=== PATIENT | female | born 1955 | race African-American/Black ===

== ENCOUNTER → 2019-10-14 | Outpatient (CLI) | payer MEDICARE, MEDICAID ==
[2019-10-14 16:32] LABS: ARTERIAL BLOOD BASE EXCESS 0.3 mmol/L; ARTERIAL BLOOD H2CO3 1.32 mmol/L (1.05-1.35); ARTERIAL BLOOD HCO3 25.7 mmol/L (20-24); ARTERIAL BLOOD O2 SATURATION 80.6 % (94-98); ARTERIAL BLOOD PCO2 43.9 mmHg (35-45); ARTERIAL BLOOD PH 7.39 (7.35-7.45); ARTERIAL BLOOD PO2 45.4 mmHg (80-100)
[2019-10-14 16:35] LABS: ARTERIAL BLOOD FIO2 ROOM AIR
== END ==
LOC: OD 15:31
PROVIDERS: ATTEND Internal Medicine Pulmonary Disease
DX: J43.2 Centrilobular emphysema (principal); E66.2 Morbid (severe) obesity with alveolar hypoventilation
CPT/HCPCS: 82803

== ENCOUNTER → 2019-11-03 | Outpatient (CLI) | payer MEDICARE, MEDICAID ==
[2019-11-03 11:22] LABS: ARTERIAL BLOOD BASE EXCESS -0.1 mmol/L; ARTERIAL BLOOD H2CO3 1.23 mmol/L (1.05-1.35); ARTERIAL BLOOD HCO3 24.7 mmol/L (20-24); ARTERIAL BLOOD O2 SATURATION 96.8 % (94-98); ARTERIAL BLOOD PO2 89.3 mmHg (80-100)
[2019-11-03 11:36] LABS: ARTERIAL BLOOD FIO2 3L
== END ==
LOC: OD 10:29
PROVIDERS: ATTEND Internal Medicine Pulmonary Disease
DX: J96.11 Chronic respiratory failure with hypoxia (principal)
CPT/HCPCS: 82803

== ENCOUNTER 2020-02-23 14:18 | Inpatient (IN) | payer MEDICARE, MEDICAID ==
--- NOTE | 2020-02-23 14:53 | ER Document Report ---
ED General - General Stated Complaint: SHORTNESS OF BREATH Time Seen by Provider: 02/23/20 14:53 Primary Care Provider: ANGE BERGER DO [Primary Care Provider] - Follow up as needed TRAVEL OUTSIDE OF THE [place] IN LAST 30 DAYS: No - HPI Patient complains to provider of: SOB Notes: Super morbidly obese 65-year-old female presents from wound clinic with increasing shortness of breath. Patient chronically wears oxygen. Initially they were concerned they were testing her pulse ox on her gloved hand was questionably hypoxic. Called EMS. EMS found patient to have oxygen reading of 95%. Patient is chronically hypoxic due to super morbid obesity. She denies any real change in her symptoms. She just does not like how she "feels". Patient states she has been feeling this for more than a year. Denies fever chills. Past Medical History - Social History Smoking Status: Unknown if Ever Smoked Family History: None Review of Systems - Review of Systems Notes: REVIEW OF SYSTEMS: CONSTITUTIONAL: -fevers, -chills EENT: -eye pain, -difficulty swallowing, -nasal congestion CARDIOVASCULAR: -chest pain, -syncope. RESPIRATORY: -cough, shortness of breath GASTROINTESTINAL: -abdominal pain, -nausea, -vomiting, -diarrhea GENITOURINARY: -dysuria, -hematuria MUSCULOSKELETAL: -back pain, -neck pain SKIN: -rash or skin lesions. HEMATOLOGIC: -easy bruising or bleeding. LYMPHATIC: -swollen, enlarged glands. NEUROLOGICAL: -altered mental status or loss of consciousness, -headache, - neurologic symptoms PSYCHIATRIC: -anxiety, -depression. ALL OTHER SYSTEMS REVIEWED AND NEGATIVE. Physical Exam - Vital signs Vitals: Temp 98.6 F 02/23/20 14:22 - Notes Notes: PHYSICAL EXAMINATION: GENERAL: Well-appearing, well-nourished and in no acute distress, super morbidly obese HEAD: Atraumatic, normocephalic. EYES: Pupils equal round, sclera anicteric, conjunctiva are normal. ENT: Surgical mask in place. NECK: Normal range of motion, LUNGS: No respiratory Distress, normal chest rise EXTREMITIES: Normal range of motion, No cyanosis. NEUROLOGICAL: Cranial nerves grossly intact. Normal speech, PSYCH: Normal mood, normal affect. SKIN: Warm, Dry, Course - Re-evaluation Re-evalutation: 02/23/20 15:27 Super morbidly obese female presents with continued shortness of breath for greater than a year. Patient having difficulty caring for herself. But does not want to go to a senior living. 02/23/20 17:38 Patient found to be hypoxic with a very low partial pressure of oxygen on her arterial blood gas. Profound elevation in proBNP. Chest x-ray also has pulmonary edema. Patient be given IV Lasix in the emergency department again diuresis. Patient is on 3 L nasal cannula. Patient require admission the hospital for further d iuresis and close monitoring. - Vital Signs Vital signs: Temp Pulse Resp BP Pulse Ox 98.6 F 20 142/74 H 92 02/23/20 14:22 02/23/20 16:00 02/23/20 15:00 02/23/20 16:00 - Laboratory Result Diagrams: 02/23/20 15:20 02/23/20 15:20 Laboratory results interpreted by me: 02/23/20 02/23/20 02/23/20 15:20 15:20 15:20 RBC 5.36 H RDW 17.6 H Plt Count 139 L Carbonic Acid ABG pCO2 ABG pO2 ABG HCO3 ABG Total CO2 ABG O2 Saturation Glucose 126 H NT-Pro-B Natriuret Pep 2300 H 02/23/20 16:00 RBC RDW Plt Count Carbonic Acid 1.39 H ABG pCO2 46.2 H ABG pO2 65.8 L ABG HCO3 26.5 H ABG Total CO2 28.0 H ABG O2 Saturation 92.5 L Glucose NT-Pro-B Natriuret Pep Discharge - Discharge Clinical Impression: Hypoxia CHF (congestive heart failure) Qualifiers: Heart failure type: unspecified Heart failure chronicity: acute on chronic Qualified Code(s): I50.9 - Heart failure, unspecified Condition: Stable Disposition: ADMITTED INPATIENT Admitting Provider: Poli (Hospitalist) Unit Admitted: Telemetry Referrals: ANGE BERGRE DO [Primary Care Provider] - Follow up as needed
[2020-02-23] MEDS ORDERED: IPRATROPIUM/ALBUTEROL 0.5-2.5 MG/3 ML AMPUL NEB ONE (14:54)
--- NOTE | 2020-02-23 15:27 | RADIOLOGY REPORT (SQ) ---
EXAM DESCRIPTION: CHEST SINGLE VIEW IMAGES COMPLETED DATE/TIME: 02/23/2020 3:10 pm REASON FOR STUDY: bed 5 difficulty breathing COMPARISON: None. EXAM PARAMETERS: NUMBER OF VIEWS: One view. TECHNIQUE: Single frontal radiographic view of the chest acquired. RADIATION DOSE: NA LIMITATIONS: None. FINDINGS: LUNGS AND PLEURA: Pulmonary vascular congestion. Cannot exclude mild pulmonary edema. MEDIASTINUM AND HILAR STRUCTURES: No masses. Contour normal. HEART AND VASCULAR STRUCTURES: Cardiomegaly. BONES: No acute findings. HARDWARE: None in the chest. OTHER: No other significant finding. IMPRESSION: Cardiomegaly with pulmonary vascular congestion. Cannot exclude mild pulmonary edema. TECHNICAL DOCUMENTATION: JOB ID: [id number] 2010 [employer]- All Rights Reserved Reading location - IP/workstation name: [email or web address]
[2020-02-23 15:45] LABS: ABSOLUTE BASOPHILS # (AUTO) 0.1 10^3/uL (0.0-0.2); ABSOLUTE EOSINOPHILS # (AUTO) 0.3 10^3/uL (0.0-0.6); TOTAL CELLS COUNTED % (AUTO) 100 %
[2020-02-23 15:53] LABS: ABSOLUTE LYMPHOCYTES (AUTO) 1.2 10^3/uL (0.5-4.7); ABSOLUTE MONOCYTES (AUTO) 0.5 10^3/uL (0.1-1.4); ABSOLUTE NEUT (AUTO) 4.8 10^3/uL (1.7-8.2); BASOPHILS % (AUTO) 1.2 % (0-2); EOSINOPHILS % (AUTO) 4.2 % (0-6); HEMOGLOBIN 14.8 g/dL (12.0-15.5); LYMPHOCYTES % (AUTO) 17.1 % (13-45); MEAN CORPUSCULAR HEMOGLOBIN 27.7 pg (27.0-33.4); MEAN CORPUSCULAR VOLUME 84 fl (80-97); MONOCYTES % (AUTO) 7.4 % (3-13); PLATELET COUNT 139 10^3/uL (150-450); RED BLOOD COUNT 5.36 10^6/uL (3.72-5.28); RED CELL DISTRIBUTION WIDTH 17.6 % (11.5-14.0); SEGMENTED NEUTROPHILS % (AUTO) 70.1 % (42-78); WHITE BLOOD COUNT 6.8 10^3/uL (4.0-10.5)
[2020-02-23 16:17] LABS: ARTERIAL BLOOD BASE EXCESS 0.8 mmol/L; ARTERIAL BLOOD H2CO3 1.39 mmol/L (1.05-1.35); ARTERIAL BLOOD HCO3 26.5 mmol/L (20-24); ARTERIAL BLOOD O2 SATURATION 92.5 % (94-98); ARTERIAL BLOOD PCO2 46.2 mmHg (35-45); ARTERIAL BLOOD PH 7.38 (7.35-7.45); ARTERIAL BLOOD PO2 65.8 mmHg (80-100)
[2020-02-23 16:18] LABS: ARTERIAL BLOOD FIO2 2L
[2020-02-23 16:22] LABS: CREATINE KINASE MB 0.66 ng/mL (<4.55)
[2020-02-23 16:24] LABS: TROPONIN I < 0.012 ng/mL
[2020-02-23 16:54] LABS: BILIRUBIN,DIRECT 0.3 mg/dL (0.0-0.4); BILIRUBIN,TOTAL 0.9 mg/dL (0.2-1.3); NEONATAL BILIRUBIN RESULT 0.7 mg/dL (0.1-1.1)
[2020-02-23 17:06] LABS: ALBUMIN 3.7 g/dL (3.5-5.0); ALKALINE PHOSPHATASE 88 U/L (38-126); ANION GAP 8 (5-19); BLOOD UREA NITROGEN 17 mg/dL (7-20); CALCIUM 9.3 mg/dL (8.4-10.2); CARBON DIOXIDE 27 mmol/L (22-30); CHLORIDE 104 mmol/L (98-107); CREATINE KINASE 60 U/L (30-135); POTASSIUM 4.2 mmol/L (3.6-5.0); TOTAL PROTEIN 7.7 g/dL (6.3-8.2)
[2020-02-23 17:07] LABS: ASPARTATE AMINO TRANSFERASE 26 U/L (14-36); GLUCOSE 126 mg/dL (75-110)
[2020-02-23 17:26] LABS: NT PRO BNP 2300 pg/mL (<125)
[2020-02-23] MEDS ORDERED: FUROSEMIDE INJ/PF 100 MG/10 ML SDV IV ONE (17:34)
--- NOTE | 2020-02-23 18:09 | EKG REPORT ---
SEVERITY:- ABNORMAL ECG - SINUS RHYTHM LEFT ATRIAL ABNORMALITY LOW VOLTAGE WITH RIGHT AXIS DEVIATION BORDERLINE R WAVE PROGRESSION, ANTERIOR LEADS BORDERLINE T ABNORMALITIES, DIFFUSE LEADS : Confirmed by: Selwyn Trujillo MD 23-Feb-2020 18:07:59
[2020-02-23] MEDS ORDERED: METOPROLOL TARTRATE PF/INJ 5 MG/5 ML SDV IV PRN (18:21)
[2020-02-23] MEDS ORDERED: HYDRALAZINE HCL INJ/PF 20 MG/1 ML SDV IV PRN (18:21)
--- NOTE | 2020-02-23 18:21 | PDOC H&P ---
History of Present Illness Admission Date/PCP: ANGE BERGER DO History of Present Illness: BRICE HALE is a 65 year old female past medical history of ANGELIKA on CPAP, CAD, hypertension, dyslipidemia, super morbid obesity with bilateral lower extremity stasis and chronic wounds, oxygen dependent COPD 3 L/min 11/03, TIA, presenting to ED complaining of shortness of breath. Patient was going for routine wound care at the wound clinic where she was noted to short of breath, her oxygen was checked and noted to be hypoxic. Patient denies any fever, chills, nausea, vomiting, diarrhea, constipation or any urinary symptoms, denies being exposed to anybody with COVID-19 exposure, lives her grandkids and has not traveled recently. In ED was noted to have elevated BNP, chest x-ray showed cardiomegaly and pulmonary vascular congestion, and ABG showed mild CO2 retention and PO2 of 65.8. Hospitalist consulted for admission. Past Medical History Cardiac Medical History: Reports: Hypertension Endocrine Medical History: Reports: Diabetes Mellitus Type 2 Social History Smoking Status: Unknown if Ever Smoked Electronic Cigarette use?: No Family History Family History: None Parental Family History Reviewed: Yes Children Family History Reviewed: Yes Sibling(s) Family History Reviewed.: Yes Medication/Allergy Allergies/Adverse Reactions: No Known Allergies Allergy (Verified 02/23/20 18:26) Review of Systems Review of Systems: as per hpi Physical Exam Vital Signs: Temp Pulse Resp BP Pulse Ox 98.6 F 23 H 159/84 H 95 02/23/20 14:22 02/23/20 17:01 02/23/20 17:00 02/23/20 17:01 Intake & Output 02/22/20 02/23/20 02/24/20 06:59 06:59 06:59 Weight 160 kg General appearance: PRESENT: no acute distress, obese Head exam: PRESENT: atraumatic, normocephalic Neck exam: ABSENT: carotid bruit, JVD, lymphadenopathy, thyromegaly Respiratory exam: PRESENT: clear to auscultation paula, prolonged expiratory phas. ABSENT: rales, rhonchi, wheezes Cardiovascular exam: PRESENT: RRR. ABSENT: diastolic murmur, rubs, systolic mu rmur GI/Abdominal exam: PRESENT: normal bowel sounds, soft. ABSENT: distended, guarding, mass, organolmegaly, rebound, tenderness Extremities exam: PRESENT: full ROM, other - Severe bilateral lower extremity lymphedema and stasis dermatitis no cellulitis or active infection.. ABSENT: calf tenderness, clubbing, pedal edema Neurological exam: PRESENT: alert, awake, oriented to person, oriented to place, oriented to time, oriented to situation, CN II-XII grossly intact. ABSENT: motor sensory deficit Results Laboratory Results: 02/23/20 15:20 02/23/20 15:20 02/23/20 02/23/20 02/23/20 15: 15:20 16:00 WBC 6.8 RBC 5.36 H Hgb 14.8 Hct 45.0 MCV 84 MCH 27.7 MCHC 33.0 RDW 17.6 H Plt Count 139 L Seg Neutrophils % 70.1 Carbonic Acid 1.39 H HCO3/H2CO3 Ratio 19:1 ABG pH 7.38 ABG pCO2 46.2 H ABG pO2 65.8 L ABG HCO3 26.5 H ABG O2 Saturation 92.5 L ABG Base Excess 0.8 FiO2 2L Sodium 138.8 Potassium 4.2 Chloride 104 Carbon Dioxide 27 Anion Gap 8 BUN 17 Creatinine 0.58 Est GFR ( Amer) > 60 Glucose 126 H Calcium 9.3 Total Bilirubin 0.9 AST 26 Alkaline Phosphatase 88 Total Protein 7.7 Albumin 3.7 02/23/20 02/23/20 15:20 15:20 Creatine Kinase 60 CK-MB (CK-2) 0.66 Troponin I < 0.012 NT-Pro-B Natriuret Pep 2300 H Impressions: Chest X-Ray 02/23/20 14:22 IMPRESSION: Cardiomegaly with pulmonary vascular congestion. Cannot exclude mild pulmonary edema. Assessment and Plan - Diagnosis (1) Acute respiratory failure with hypoxia and hypercapnia Is this a current diagnosis for this admission?: Yes Plan: Mostly due to acute CHF exacerbation, complicated by underlying COPD and ANGELIKA. WBC WNL. Afebrile. Denies any fever or chills. Denies any loss of smell or taste. Denies COVID-19 exposure. Admit to telemetry, duo nebs, supplemental oxygen, IV diuretics, incentive spirometry, flutter valve, ICS, LABA, LABA, CPAP. (2) ANGELIKA (obstructive sleep apnea) Is this a current diagnosis for this admission?: Yes Plan: On CPAP. Nocturnal CPAP. Outpatient pulmonology follow-up. (3) Hypertension Is this a current diagnosis for this admission?: Yes Plan: Volume overloaded. SBP mildly elevated. Resume home meds. PRN IV hydralazine and metoprolol. (4) Morbid obesity with BMI of 60.0-69.9, adult Is this a current diagnosis for this admission?: Yes Plan: Super morbidly obese. Likely candidate for bariatric intervention. Denies any history of hypothyroidism. Will obtain TSH. Diet and lifestyle modification recommended. (5) COPD (chronic obstructive pulmonary disease) Qualifiers: COPD type: COPD with acute exacerbation Qualified Code(s): J44.1 - Chronic obstructive pulmonary disease with (acute) exacerbation Is this a current diagnosis for this admission?: Yes Plan: Mild expiratory wheezing and prolonged expiratory phase. Former smoker, history of COPD oxygen dependent, 3 L/min 11/03. LABA, LABA, ICS, DuoNeb, PRN BiPAP. Flutter valve and incentive spirometry. (6) Stasis dermatitis of both legs Is this a current diagnosis for this admission?: Yes Plan: Due to bilateral lower extremity severe lymphedema complicated by bilateral lower extremity stasis dermatitis with history of CHF. Elevate lower extremities. Compression stocking. Wound care. (7) CHF (congestive heart failure) Qualifiers: Heart failure type: systolic Heart failure chronicity: acute on chronic Qualified Code(s): I50.23 - Acute on chronic systolic (congestive) heart failure Is this a current diagnosis for this admission?: Yes Plan: Denies any anginal symptoms. EKG no acute changes. Troponin WNL. BNP 2700. Strict in and out, daily weights, IV diuretics, fluid restriction, cardiac diet.
[2020-02-23] MEDS ORDERED: ACETAMINOPHEN 325 MG TABLET PO PRN (18:22)
[2020-02-23] MEDS ORDERED: ONDANSETRON HCL INJ/PF 4 MG/2 ML SDV IV PRN (18:22)
[2020-02-23] MEDS ORDERED: MAGNESIUM HYDROXIDE SUSP 30 ML UDCUP PO PRN (18:22)
[2020-02-23] MEDS ORDERED: PROMETHAZINE HCL INJ 25 MG/1 ML VIAL IV PRN (18:22)
[2020-02-23] MEDS ORDERED: IPRATROPIUM/ALBUTEROL 0.5-2.5 MG/3 ML AMPUL NEB PRN (18:22)
[2020-02-23] MEDS ORDERED: DEXTROSE 50%-WATER 25 GM/50 ML DISP.SYRIN IV PRN ×2 (18:28)
[2020-02-23] MEDS ORDERED: DEXTROSE 40% GEL 15 GM TUBE PO PRN ×2 (18:28)
[2020-02-23] MEDS ORDERED: GLUCAGON,HUMAN RECOMB 1 MG INJ IM PRN (18:28)
[2020-02-23] MEDS: IPRATROPIUM/ALBUTEROL 0.5-2.5 MG/3 ML AMPUL NEB SCH (20:56)
[2020-02-23 21:02] LABS: APPEARANCE,URINE SLIGHTLY-CLOUDY; BILIRUBIN,URINE NEGATIVE (NEGATIVE); COLOR,URINE YELLOW; GLUCOSE, URINE NEGATIVE (NEGATIVE); KETONES,URINE NEGATIVE (NEGATIVE); LEUKOCYTE ESTERASE,URINE LARGE (NEGATIVE); NITRITE,URINE NEGATIVE (NEGATIVE); PROTEIN,URINE NEGATIVE (NEGATIVE); URINE SPECIFIC GRAVITY 1.006; UROBILINOGEN,URINE NEGATIVE mg/dL (<2.0)
[2020-02-23] MEDS: INSULIN LISPRO 100 UNIT/ML 3 ML VIAL SUBCUT SCH (22:22)
[2020-02-23] MEDS: METHYLPREDNISOLONE INJ 40 MG/1 ML SDV IV SCH (22:28)
[2020-02-23] MEDS: FUROSEMIDE INJ/PF 20 MG/2 ML SDV IV SCH (22:29)
[2020-02-23] MEDS: FAMOTIDINE 20 MG TABLET PO SCH (22:29)
[2020-02-24] MEDS: OXYCODONE-ACETAMINOPHEN 5-325 MG TABLET PO PRN (03:25)
[2020-02-24] MEDS: METHYLPREDNISOLONE INJ 40 MG/1 ML SDV IV SCH ×3 (05:26→21:37)
[2020-02-24 06:34] LABS: ARTERIAL BLOOD BASE EXCESS -0.5 mmol/L; ARTERIAL BLOOD H2CO3 1.64 mmol/L (1.05-1.35); ARTERIAL BLOOD HCO3 26.8 mmol/L (20-24); ARTERIAL BLOOD O2 SATURATION 92.5 % (94-98); ARTERIAL BLOOD PCO2 54.5 mmHg (35-45); ARTERIAL BLOOD PH 7.31 (7.35-7.45); ARTERIAL BLOOD PO2 70.5 mmHg (80-100); ARTERIAL BLOOD TOTAL CO2 28.5 mmol/L (21-25)
[2020-02-24] MEDS: IPRATROPIUM/ALBUTEROL 0.5-2.5 MG/3 ML AMPUL NEB SCH ×3 (07:54→20:07)
[2020-02-24] MEDS: INSULIN LISPRO 100 UNIT/ML 3 ML VIAL SUBCUT SCH ×4 (09:04→21:40)
[2020-02-24] MEDS: ENOXAPARIN SODIUM INJ 40 MG/0.4 ML DISP.SYRIN SUBCUT SCH (09:12)
[2020-02-24] MEDS: PRIMIDONE 50 MG TABLET PO SCH (09:27)
[2020-02-24] MEDS: FLUTICASONE/VILANTEROL 200-25 MCG/DOSE IH SCH (09:27)
[2020-02-24] MEDS: NAPROXEN 250 MG TABLET PO SCH ×2 (09:28→21:37)
[2020-02-24] MEDS: DOCUSATE SODIUM 100 MG CAPSULE PO SCH (09:28)
[2020-02-24] MEDS: CLOPIDOGREL BISULFATE 75 MG TABLET PO SCH (09:28)
[2020-02-24] MEDS: FAMOTIDINE 20 MG TABLET PO SCH ×2 (09:28→21:41)
[2020-02-24] MEDS: SERTRALINE HCL 50 MG TABLET PO SCH (09:28)
[2020-02-24] MEDS: LOSARTAN POTASSIUM 50 MG TABLET PO SCH (09:28)
[2020-02-24] MEDS: ISOSORBIDE MONONITRATE 30 MG TAB.ER.24H PO SCH (09:29)
[2020-02-24] MEDS: FUROSEMIDE INJ/PF 20 MG/2 ML SDV IV SCH ×2 (09:29→21:40)
[2020-02-24] MEDS: CARVEDILOL 3.125 MG TABLET PO SCH ×2 (09:29→21:38)
[2020-02-24] MEDS ORDERED: ONDANSETRON HCL INJ/PF 4 MG/2 ML SDV IV PRN (09:30)
[2020-02-24] MEDS ORDERED: PROMETHAZINE HCL INJ 25 MG/1 ML VIAL IV PRN (09:30)
[2020-02-24] MEDS: AMLODIPINE BESYLATE 10 MG TABLET PO SCH (09:36)
[2020-02-24] MEDS ORDERED: (PENDING PHARMACY ID) (Losartan Potassium [Losartan Potassium] 100 MG) PO SCH (10:00)
[2020-02-24] MEDS ORDERED: (PENDING PHARMACY ID) (Naproxen [Naproxen] 500 MG) PO SCH (10:00)
[2020-02-24] MEDS ORDERED: (PENDING PHARMACY ID) (Oxybutynin Chloride [Oxybutynin Chloride Er] 10 MG) PO SCH (10:00)
[2020-02-24] MEDS: OXYBUTYNIN CHLORIDE 5 MG TABLET PO SCH (10:57)
[2020-02-24] MEDS ORDERED: MAGNESIUM HYDROXIDE SUSP 30 ML UDCUP PO PRN (11:12)
[2020-02-24] MEDS ORDERED: (PENDING PHARMACY ID) (Paroxetine Hcl [Paxil] 30 MG) PO SCH (12:15)
[2020-02-24] MEDS: PAROXETINE HCL 20 MG TABLET PO SCH (13:21)
--- NOTE | 2020-02-24 19:16 | PDOC PROGRESS REPORT ---
Subjective Progress Note for:: 02/24/20 Subjective:: BRICE HALE is a 65 year old female past medical history of ANGELIKA on CPAP, CAD, hypertension, dyslipidemia, super morbid obesity with bilateral lower extremity stasis and chronic wounds, oxygen dependent COPD 3 L/min 11/03, TIA, presenting to ED complaining of shortness of breath. Patient was going for routine wound care at the wound clinic where she was noted to short of breath, her oxygen was checked and noted to be hypoxic. Patient denies any fever, chills, nausea, vomiting, diarrhea, constipation or any urinary symptoms, denies being exposed to anybody with COVID-19 exposure, lives her grandkids and has not traveled recently. In ED was noted to have elevated BNP, chest x-ray showed cardiomegaly and pulmonary vascular congestion, and ABG showed mild CO2 retention and PO2 of 65.8. Hospitalist consulted for admission. 02/24/2020. No acute events overnight. Reporting significant improvement of respiratory symptoms. However patient is still hypoxic based on ABG. Denies any fever, chills, nausea, vomiting, diarrhea, constipation or any urinary sy mptoms. Reason For Visit: ACUTE RESPIRATORY FAILURE WITH HYPOXIA,ACUTE CHF Physical Exam Vital Signs: Temp Pulse Resp BP Pulse Ox 97.4 F 62 20 142/69 H 91 L 02/24/20 15:55 02/24/20 15:55 02/24/20 15:55 02/24/20 15:55 02/24/20 15:59 Intake & Output 02/23/20 02/24/20 02/25/20 06:59 06:59 06:59 Intake Total 880 Output Total 3000 1700 Balance -3000 -820 Weight 160 kg General appearance: PRESENT: no acute distress, obese Head exam: PRESENT: atraumatic, normocephalic Respiratory exam: PRESENT: clear to auscultation paula. ABSENT: rales, rhonchi, wheezes Cardiovascular exam: PRESENT: RRR. ABSENT: diastolic murmur, rubs, systolic murmur GI/Abdominal exam: PRESENT: normal bowel sounds, soft. ABSENT: distended, guarding, mass, organolmegaly, rebound, tenderness Extremities exam: PRESENT: other - Severe bilateral lower extremity lymphedema and stasis dermatitis. No sign of active infection. Neurological exam: PRESENT: alert, awake, oriented to person, oriented to place, oriented to time, oriented to situation, CN II-XII grossly intact. ABSENT: motor sensory deficit Results Laboratory Results: 02/23/20 15:20 02/23/20 15:20 02/23/20 02/23/20 02/24/20 15:20 20:10 06:15 Carbonic Acid 1.64 H HCO3/H2CO3 Ratio 16:1 ABG pH 7.31 L ABG pCO2 54.5 H ABG pO2 70.5 L ABG HCO3 26.8 H ABG O2 Saturation 92.5 L ABG Base Excess -0.5 FiO2 34% TSH 4.20 Urine Color YELLOW Urine Appearance SLIGHTLY-CLOUDY Urine pH 6.0 Ur Specific [place] 1.006 Urine Protein NEGATIVE Urine Glucose (UA) NEGATIVE Urine Ketones NEGATIVE Urine Blood SMALL H Urine Nitrite NEGATIVE Ur Leukocyte Esterase LARGE H Urine WBC (Auto) 41 Urine RBC (Auto) 5 02/23/20 02/23/20 15:20 15:20 Creatine Kinase 60 CK-MB (CK-2) 0.66 Troponin I < 0.012 NT-Pro-B Natriuret Pep 2300 H Impressions: Chest X-Ray 02/23/20 14:22 IMPRESSION: Cardiomegaly with pulmonary vascular congestion. Cannot exclude mild pulmonary edema. Assessment and Plan - Diagnosis (1) Acute respiratory failure with hypoxia and hypercapnia Is this a current diagnosis for this admission?: Yes Plan: Mostly due to acute CHF exacerbation, complicated by underlying COPD and ANGELIKA. WBC WNL. Afebrile. Denies any fever or chills. Denies any loss of smell or taste. Denies COVID-19 exposure. Admit to telemetry, duo nebs, supplemental oxygen, IV diuretics, incentive spirometry, flutter valve, ICS, LABA, LABA, CPAP. (2) ANGELIKA (obstructive sleep apnea) Is this a current diagnosis for this admission?: Yes Plan: On CPAP. Nocturnal CPAP. Outpatient pulmonology follow-up. (3) Hypertension Is this a current diagnosis for this admission?: Yes Plan: Volume overloaded. SBP mildly elevated. Resume home meds. PRN IV hydralazine and metoprolol. (4) Morbid obesity with BMI of 60.0-69.9, adult Is this a current diagnosis for this admission?: Yes Plan: Super morbidly obese. Likely candidate for bariatric intervention. Denies any history of hypothyroidism. Will obtain TSH. Diet and lifestyle modification recommended. (5) COPD (chronic obstructive pulmonary disease) Qualifiers: COPD type: COPD with acute exacerbation Qualified Code(s): J44.1 - Chronic obstructive pulmonary disease with (acute) exacerbation Is this a current diagnosis for this admission?: Yes Plan: Mild expiratory wheezing and prolonged expiratory phase. Former smoker, history of COPD oxygen dependent, 3 L/min 11/03. LABA, LABA, ICS, DuoNeb, PRN BiPAP. Flutter valve and incentive spirometry. (6) Stasis dermatitis of both legs Is this a current diagnosis for this admission?: Yes Plan: Due to bilateral lower extremity severe lymphedema complicated by bilateral lower extremity stasis dermatitis with history of CHF. Elevate lower extremities. Compression stocking. Wound care. (7) CHF (congestive heart failure) Qualifiers: Heart failure type: systolic Heart failure chronicity: acute on chronic Qualified Code(s): I50.23 - Acute on chronic systolic (congestive) heart failure Is this a current diagnosis for this admission?: Yes Plan: Denies any anginal symptoms. EKG no acute changes. Troponin WNL. BNP 2700. Strict in and out, daily weights, IV diuretics, fluid restriction, cardiac diet.
[2020-02-24] MEDS: SIMVASTATIN 10 MG TABLET PO SCH (21:39)
[2020-02-25] MEDS: METHYLPREDNISOLONE INJ 40 MG/1 ML SDV IV SCH ×3 (05:29→23:56)
[2020-02-25 06:33] LABS: ARTERIAL BLOOD BASE EXCESS 1.1 mmol/L; ARTERIAL BLOOD H2CO3 1.47 mmol/L (1.05-1.35); ARTERIAL BLOOD HCO3 27.3 mmol/L (20-24); ARTERIAL BLOOD O2 SATURATION 94.2 % (94-98); ARTERIAL BLOOD PCO2 48.8 mmHg (35-45); ARTERIAL BLOOD PH 7.37 (7.35-7.45); ARTERIAL BLOOD PO2 73.6 mmHg (80-100); ARTERIAL BLOOD TOTAL CO2 28.8 mmol/L (21-25)
[2020-02-25 06:36] LABS: ARTERIAL BLOOD FIO2 32%
[2020-02-25] MEDS: INSULIN LISPRO 100 UNIT/ML 3 ML VIAL SUBCUT SCH ×3 (08:01→17:15)
[2020-02-25] MEDS: IPRATROPIUM/ALBUTEROL 0.5-2.5 MG/3 ML AMPUL NEB SCH ×3 (08:58→20:48)
[2020-02-25] MEDS: PAROXETINE HCL 20 MG TABLET PO SCH (09:25)
[2020-02-25] MEDS: FLUTICASONE/VILANTEROL 200-25 MCG/DOSE IH SCH (09:25)
[2020-02-25] MEDS: AMLODIPINE BESYLATE 10 MG TABLET PO SCH (09:25)
[2020-02-25] MEDS: CLOPIDOGREL BISULFATE 75 MG TABLET PO SCH (09:25)
[2020-02-25] MEDS: FUROSEMIDE INJ/PF 20 MG/2 ML SDV IV SCH (09:25)
[2020-02-25] MEDS: ISOSORBIDE MONONITRATE 30 MG TAB.ER.24H PO SCH (09:25)
[2020-02-25] MEDS: FAMOTIDINE 20 MG TABLET PO SCH ×2 (09:25→23:59)
[2020-02-25] MEDS: DOCUSATE SODIUM 100 MG CAPSULE PO SCH (09:25)
[2020-02-25] MEDS: SERTRALINE HCL 50 MG TABLET PO SCH (09:25)
[2020-02-25] MEDS: CARVEDILOL 3.125 MG TABLET PO SCH ×2 (09:26→23:59)
[2020-02-25] MEDS: LOSARTAN POTASSIUM 50 MG TABLET PO SCH (09:26)
[2020-02-25] MEDS: ENOXAPARIN SODIUM INJ 40 MG/0.4 ML DISP.SYRIN SUBCUT SCH (09:26)
[2020-02-25] MEDS: NAPROXEN 250 MG TABLET PO SCH ×2 (09:26→23:58)
[2020-02-25] MEDS: PRIMIDONE 50 MG TABLET PO SCH (09:26)
[2020-02-25] MEDS: OXYBUTYNIN CHLORIDE 5 MG TABLET PO SCH (09:26)
[2020-02-25] MEDS: CEPHALEXIN 500 MG CAPSULE PO SCH (13:22)
--- NOTE | 2020-02-25 14:21 | PDOC PROGRESS REPORT ---
Subjective Progress Note for:: 02/25/20 Subjective:: BRICE HALE is a 65 year old female past medical history of ANGELIKA on CPAP, CAD, hypertension, dyslipidemia, super morbid obesity with bilateral lower extremity stasis and chronic wounds, oxygen dependent COPD 3 L/min 11/03, TIA, presenting to ED complaining of shortness of breath. Patient was going for routine wound care at the wound clinic where she was noted to short of breath, her oxygen was checked and noted to be hypoxic. Patient denies any fever, chills, nausea, vomiting, diarrhea, constipation or any urinary symptoms, denies being exposed to anybody with COVID-19 exposure, lives her grandkids and has not traveled recently. In ED was noted to have elevated BNP, chest x-ray showed cardiomegaly and pulmonary vascular congestion, and ABG showed mild CO2 retention and PO2 of 65.8. Hospitalist consulted for admission. 02/24/2020. No acute events overnight. Reporting significant improvement of respiratory symptoms. However patient is still hypoxic based on ABG. Denies any fever, chills, nausea, vomiting, diarrhea, constipation or any urinary sy mptoms. 02/25/2020. No acute events overnight. Patient currently receiving up in distress, endorses significant improvement in her lower extremity edema, shortness of breath improving, patient still hypoxic based on ABG. Reason For Visit: ACUTE RESPIRATORY FAILURE WITH HYPOXIA,ACUTE CHF Physical Exam Vital Signs: Temp Pulse Resp BP Pulse Ox 98.1 F 72 20 180/84 H 91 L 02/25/20 10:41 02/25/20 10:41 02/25/20 10:41 02/25/20 10:41 02/25/20 10:41 Intake & Output 02/24/20 02/25/20 02/26/20 06:59 06:59 06:59 Intake Total 1080 650 Output Total 3000 2750 300 Balance -3000 -1670 350 Weight 160 kg 160 kg General appearance: PRESENT: no acute distress, morbidly obese, well-developed, well-nourished Head exam: PRESENT: atraumatic, normocephalic Respiratory exam: PRESENT: clear to auscultation paula. ABSENT: rales, rhonchi, wheezes Cardiovascular exam: PRESENT: RRR. ABSENT: diastolic murmur, rubs, systolic murmur GI/Abdominal exam: PRESENT: normal bowel sounds, soft. ABSENT: distended, guarding, mass, organolmegaly, rebound, tenderness Extremities exam: PRESENT: full ROM, +2 edema, other - Severe bilateral lower extremity below the knee stasis dermatitis and lymphedema.. ABSENT: calf tenderness, clubbing, pedal edema Neurological exam: PRESENT: alert, awake, oriented to person, oriented to place, oriented to time, oriented to situation, CN II-XII grossly intact. ABSENT: motor sensory deficit Results Laboratory Results: 02/23/20 15:20 02/23/20 15:20 02/25/20 05:55 Carbonic Acid 1.47 H HCO3/H2CO3 Ratio 18:1 ABG pH 7.37 ABG pCO2 48.8 H ABG pO2 73.6 L ABG HCO3 27.3 H ABG O2 Saturation 94.2 ABG Base Excess 1.1 FiO2 32% 02/23/20 02/23/20 15:20 15:20 Creatine Kinase 60 CK-MB (CK-2) 0.66 Troponin I < 0.012 NT-Pro-B Natriuret Pep 2300 H Impressions: Chest X-Ray 02/23/20 14:22 IMPRESSION: Cardiomegaly with pulmonary vascular congestion. Cannot exclude mild pulmonary edema. Assessment and Plan - Diagnosis (1) Acute respiratory failure with hypoxia and hypercapnia Is this a current diagnosis for this admission?: Yes Plan: Mostly due to acute CHF exacerbation, complicated by underlying COPD and ANGELIKA. WBC WNL. Afebrile. Denies any fever or chills. Denies any loss of smell or taste. Denies COVID-19 exposure. Continue telemetry, duo nebs, supplemental oxygen, IV diuretics, incentive spirometry, flutter valve, ICS, LABA, LABA, CPAP. (2) ANGELIKA (obstructive sleep apnea) Is this a current diagnosis for this admission?: Yes Plan: On CPAP. Nocturnal CPAP. Outpatient pulmonology follow-up. (3) Hypertension Is this a current diagnosis for this admission?: Yes Plan: Improving. Not optimized. Continue beta-blockers, ARB, Lasix, hydralazine, calcium channel blockers. PRN IV hydralazine and metoprolol. (4) Morbid obesity with BMI of 60.0-69.9, adult Is this a current diagnosis for this admission?: Yes Plan: Super morbidly obese. Likely candidate for bariatric intervention. Denies any history of hypothyroidism. Will obtain TSH. Diet and lifestyle modification recommended. (5) COPD (chronic obstructive pulmonary disease) Qualifiers: COPD type: COPD with acute exacerbation Qualified Code(s): J44.1 - Chronic obstructive pulmonary disease with (acute) exacerbation Is this a current diagnosis for this admission?: Yes Plan: Mild expiratory wheezing and prolonged expiratory phase. Former smoker, history of COPD oxygen dependent, 3 L/min 11/03. LABA, LABA, ICS, DuoNeb, PRN BiPAP. Flutter valve and incentive spirometry. (6) Stasis dermatitis of both legs Is this a current diagnosis for this admission?: Yes Plan: Due to bilateral lower extremity severe lymphedema complicated by bilateral lower extremity stasis dermatitis with history of CHF. Elevate lower extremities. Compression stocking. Wound care. (7) CHF (congestive heart failure) Qualifiers: Heart failure type: systolic Heart failure chronicity: acute on chronic Qualified Code(s): I50.23 - Acute on chronic systolic (congestive) heart failure Is this a current diagnosis for this admission?: Yes Plan: Denies any anginal symptoms. EKG no acute changes. Troponin WNL. BNP 2700. Strict in and out, daily weights, IV diuretics, fluid restriction, cardiac diet.
[2020-02-25] MEDS ORDERED: CARVEDILOL 3.125 MG TABLET PO SCH (22:00)
[2020-02-25] MEDS: SIMVASTATIN 10 MG TABLET PO SCH (23:58)
[2020-02-26] MEDS: FUROSEMIDE INJ/PF 20 MG/2 ML SDV IV SCH ×2 (00:09→09:35)
[2020-02-26] MEDS: INSULIN LISPRO 100 UNIT/ML 3 ML VIAL SUBCUT SCH ×3 (00:17→12:28)
[2020-02-26] MEDS: OXYCODONE-ACETAMINOPHEN 5-325 MG TABLET PO PRN (04:51)
[2020-02-26] MEDS: CEPHALEXIN 500 MG CAPSULE PO SCH ×2 (05:32)
[2020-02-26] MEDS: METHYLPREDNISOLONE INJ 40 MG/1 ML SDV IV SCH (05:32)
[2020-02-26 06:32] LABS: ARTERIAL BLOOD BASE EXCESS 2.4 mmol/L; ARTERIAL BLOOD PCO2 46.5 mmHg (35-45); ARTERIAL BLOOD PO2 70.2 mmHg (80-100); ARTERIAL BLOOD TOTAL CO2 29.4 mmol/L (21-25)
[2020-02-26 06:33] LABS: ARTERIAL BLOOD FIO2 3L
[2020-02-26] MEDS: IPRATROPIUM/ALBUTEROL 0.5-2.5 MG/3 ML AMPUL NEB SCH ×2 (08:04→14:41)
[2020-02-26] MEDS: LOSARTAN POTASSIUM 50 MG TABLET PO SCH (09:36)
[2020-02-26] MEDS: FAMOTIDINE 20 MG TABLET PO SCH (09:36)
[2020-02-26] MEDS: PAROXETINE HCL 20 MG TABLET PO SCH (09:36)
[2020-02-26] MEDS: HYDRALAZINE HCL 50 MG TABLET PO SCH ×2 (09:36)
[2020-02-26] MEDS: DOCUSATE SODIUM 100 MG CAPSULE PO SCH (09:36)
[2020-02-26] MEDS: PRIMIDONE 50 MG TABLET PO SCH (09:37)
[2020-02-26] MEDS: NAPROXEN 250 MG TABLET PO SCH (09:37)
[2020-02-26] MEDS: CLOPIDOGREL BISULFATE 75 MG TABLET PO SCH (09:37)
[2020-02-26] MEDS: ISOSORBIDE MONONITRATE 30 MG TAB.ER.24H PO SCH (09:37)
[2020-02-26] MEDS: CARVEDILOL 3.125 MG TABLET PO SCH (09:37)
[2020-02-26] MEDS: SERTRALINE HCL 50 MG TABLET PO SCH (09:37)
[2020-02-26] MEDS: ENOXAPARIN SODIUM INJ 40 MG/0.4 ML DISP.SYRIN SUBCUT SCH (09:39)
[2020-02-26] MEDS: OXYBUTYNIN CHLORIDE 5 MG TABLET PO SCH (09:48)
[2020-02-26] MEDS: FLUTICASONE/VILANTEROL 200-25 MCG/DOSE IH SCH (09:49)
[2020-02-26] MEDS ORDERED: AMLODIPINE BESYLATE 5 MG TABLET PO SCH (10:00)
[2020-02-26 12:07] VITALS: BP 182/93
--- NOTE | 2020-02-27 15:53 | PDOC DISCHARGE SUMMARY ---
Impression - Admit/DC Date/PCP Admission Date/Primary Care Provider: 02/24/20 14:27 ANGE BERGER DO Discharge Date: 02/27/20 - Discharge Diagnosis (1) Acute respiratory failure with hypoxia and hypercapnia Is this a current diagnosis for this admission?: Yes (2) ANGELIKA (obstructive sleep apnea) Is this a current diagnosis for this admission?: Yes (3) Hypertension Is this a current diagnosis for this admission?: Yes (4) Morbid obesity with BMI of 60.0-69.9, adult Is this a current diagnosis for this admission?: Yes (5) COPD (chronic obstructive pulmonary disease) Is this a current diagnosis for this admission?: Yes (6) Stasis dermatitis of both legs Is this a current diagnosis for this admission?: Yes (7) CHF (congestive heart failure) Is this a current diagnosis for this admission?: Yes (8) Augustine catheter in place Is this a current diagnosis for this admission?: Yes (9) UTI (urinary tract infection) Is this a current diagnosis for this admission?: Yes - Additional Information Discharge Diet: Cardiac, Diabetic Discharge Activity: Activity As Tolerated Referrals: ANGE BERGER DO [Primary Care Provider] - 03/07/20 2:15 pm Prescriptions: Cephalexin Monohydrate [Keflex 500 mg Capsule] 500 mg PO TID 3 Days #9 capsule Furosemide [Lasix 40 mg Tablet] 40 mg PO QAM 30 Days #30 tablet Levofloxacin [Levaquin 750 mg Tablet] 750 mg PO DAILY 5 Days #5 tablet Home Medications: Amlodipine Besylate [Norvasc 10 mg Tablet] 10 mg PO DAILY 02/23/20 Carvedilol [Coreg 3.125 mg Tablet] 3.125 mg PO Q12 02/23/20 Clopidogrel Bisulfate [Plavix 75 mg Tablet] 75 mg PO DAILY 02/23/20 Glipizide [Glocotrol 5 Mg Tablet] 5 mg PO Q12 02/23/20 Isosorbide Mononitrate [Imdur 30 mg Tablet.er] 30 mg PO DAILY 02/23/20 Losartan Potassium 100 mg PO DAILY 02/23/20 Naproxen 500 mg PO BID 02/23/20 Oxybutynin Chloride [Oxybutynin Chloride ER] 10 mg PO DAILY 02/23/20 Pravastatin Sodium [Pravachol] 20 mg PO QHS 02/23/20 Primidone [Mysoline 50 Mg Tablet] 50 mg PO DAILY 02/23/20 Sertraline HCl [Zoloft 50 mg Tablet] 50 mg PO DAILY 02/23/20 Sitagliptin Phosphate [Januvia 50 mg Tablet] 50 mg PO DAILY 02/23/20 Aspirin [Adult Low Dose Aspirin EC] 81 mg PO DAILY 02/24/20 Clotrimazole/Betamethasone Dip [Lotrisone Cream 15 gm] 1 applic TOP BID 02/24/20 Fluticasone Propionate [Flonase Nasal [place] 50 Mcg/[place] 16 gm] 1 spray NASL BID 02/24/20 Gabapentin [Neurontin 300 mg Capsule] 300 mg PO Q8 02/24/20 Ipratropium/Albuterol Sulfate [Combivent Respimat 4 gm Mdi] 1 puff IH QID 02/24/20 Metformin HCl [Metformin HCl ER] 750 mg PO BID 02/24/20 Paroxetine HCl [Paxil] 30 mg PO DAILY 02/24/20 Umeclidinium Brm/Vilanterol Tr [Anoro Ellipta 62.5-25 Mcg INH] 1 puff IH DAILY 02/24/20 Cephalexin Monohydrate [Keflex 500 mg Capsule] 500 mg PO TID 3 Days #9 capsule 02/26/20 Furosemide [Lasix 40 mg Tablet] 40 mg PO QAM 30 Days #30 tablet 02/26/20 Levofloxacin [Levaquin 750 mg Tablet] 750 mg PO DAILY 5 Days #5 tablet 02/27/20 History of Present Illiness History of Present Illness: BRICE HALE is a 65 year old female past medical history of ANGELIKA on CPAP, CAD, hypertension, dyslipidemia, super morbid obesity with bilateral lower extremity stasis and chronic wounds, oxygen dependent COPD 3 L/min 11/03, TIA, presenting to ED complaining of shortness of breath. Patient was going for routine wound care at the wound clinic where she was noted to short of breath, her oxygen was checked and noted to be hypoxic. Patient denies any fever, chills, nausea, vomiting, diarrhea, constipation or any urinary symptoms, denies being exposed to anybody with COVID-19 exposure, lives her grandkids and has not traveled recently. In ED was noted to have elevated BNP, chest x-ray showed cardiomegaly and pulmonary vascular congestion, and ABG showed mild CO2 retention and PO2 of 65.8. Hospitalist consulted for admission. Hospital Course Hospital Course: (1) Acute respiratory failure with hypoxia and hypercapnia Moderate improvement. Patient back at baseline respiratory diabetes on 3 L nasal cannula. Mostly due to acute CHF exacerbation, complicated by underlying COPD and ANGELIKA. WBC WNL. Afebrile. Denies any fever or chills. Denies any loss of smell or taste. Denies COVID-19 exposure. Admitted to telemetry, duo nebs, supplemental oxygen, IV diuretics, incentive spirometry, flutter valve, ICS, LABA, LABA, CPAP. Note: Some PVCs were noted on tele monitor. Patient was notified and was advised to wait for cardiology to be consulted however she was very anxious to leave and adamant about not staying. Denied any lightheadedness or palpitation. Was advised to follow-up with PCP and cardiology. (2) ANGELIKA (obstructive sleep apnea) On CPAP. Nocturnal CPAP. Outpatient pulmonology follow-up. (3) Hypertension Optimized. Started on beta-blockers, ARB, Lasix, hydralazine, calcium channel blockers. PRN IV hydralazine and metoprolol. (4) Morbid obesity with BMI of 60.0-69.9, adult Super morbidly obese. Likely candidate for bariatric intervention. Denies any history of hypothyroidism. Will obtain TSH. Diet and lifestyle modification recommended. (5) COPD (chronic obstructive pulmonary disease) Moderate improvement. Back to baseline. Former smoker, history of COPD oxygen dependent, 3 L/min 11/03. Started on LABA, LABA, ICS, DuoNeb, PRN BiPAP. Flutter valve and incentive spirometry. Patient has home oxygen. Advised to resume home meds upon discharge and resume oxygen upon discharge. (6) Stasis dermatitis of both legs Moderate improvement after diuresis. Due to bilateral lower extremity severe lymphedema complicated by bilateral lower extremity stasis dermatitis with history of CHF. Was advised elevate lower extremities. Compression stocking. Advised to follow-up with wound care. (7) CHF (congestive heart failure) Euvolemic. Compensated. Denies any anginal symptoms. EKG no acute changes. Troponin WNL. BNP 2700. Started on strict in and out, daily weights, IV diuretics, fluid restriction, cardiac diet. Discharged on beta-blockers and diuretics. (8) Augustine catheter in place Patient had a Augustine cath placed in ED on admission, on the day of discharge patient was told that Augustine had to be removed but she adamantly refused to remove it, stating that it makes it much easier for her to pee as she has proble m ambulating due to her morbid obesity and stasis dermatitis. I went to her room on 2 occasions and extensively advised her about removing her Augustine cath and told her about risk of having a Augustine cath for prolonged time. Unfortunately patient still adamantly refused to have her Augustine out. I contacted nursing supervisor carpenters seeking her advice on the situation, as per nursing supervisor carpenters if patient refused to have her augustine out, she could be discharged with Augustine cath as long as she receives training on Augustine cath and a follow-up home health is arranged for her to take care of her Augustine cath. Patient received extensive education about Augustine care by the primary nurse, was also discharged with home health for home Augustine care. Patient on office discharge with home health and PT and OT. (9) UTI (urinary tract infection) Due to Klebsiella pneumonia and pseudomonas aeruginosa. At the time of discharge sensitivity was pending however patient was sent on Keflex for 5 days for presumptive UTI due to E. coli. Urine culture came back positive for pseudomonas aeruginosa sensitive to levofloxacin. Notify the patient and sent a prescription for levofloxacin 750 mg p.o. daily for 5 days to her pharmacy. Physical Exam Vital Signs: Temp Pulse Resp BP Pulse Ox 98.1 F 89 20 182/93 H 81 L 02/26/20 11:55 02/26/20 11:55 02/26/20 11:55 02/26/20 11:55 02/26/20 11:07 Intake & Output 02/26/20 02/27/20 02/28/20 06:59 06:59 06:59 Intake Total 1550 Output Total 1700 450 Balance -150 -450 Weight 160 kg General appearance: PRESENT: no acute distress, morbidly obese, well-developed, well-nourished Head exam: PRESENT: atraumatic, normocephalic Respiratory exam: PRESENT: clear to auscultation paula. ABSENT: rales, rhonchi, wheezes Cardiovascular exam: PRESENT: RRR. ABSENT: diastolic murmur, rubs, systolic murmur GI/Abdominal exam: PRESENT: normal bowel sounds, soft. ABSENT: distended, guarding, mass, organolmegaly, rebound, tenderness Gentrourinary exam: PRESENT: indwelling catheter Extremities exam: PRESENT: full ROM, other - Bilateral lower extremity lymphedema and stasis dermatitis.. ABSENT: calf tenderness, clubbing, pedal edema Skin exam: PRESENT: dry, intact, warm. ABSENT: cyanosis, rash Results Laboratory Results: WBC 6.8 10^3/uL (4.0-10.5) 02/23/20 15:20 RBC 5.36 10^6/uL (3.72-5.28) H 02/23/20 15:20 Hgb 14.8 g/dL (12.0-15.5) 02/23/20 15:20 Hct 45.0 % (36.0-47.0) 02/23/20 15:20 MCV 84 fl (80-97) 02/23/20 15:20 MCH 27.7 pg (27.0-33.4) 02/23/20 15:20 MCHC 33.0 g/dL (32.0-36.0) 02/23/20 15:20 RDW 17.6 % (11.5-14.0) H 02/23/20 15:20 Plt Count 139 10^3/uL (150-450) L 02/23/20 15:20 Lymph % (Auto) 17.1 % (13-45) 02/23/20 15:20 [place] % (Auto) 7.4 % (3-13) 02/23/20 15:20 Eos % (Auto) 4.2 % (0-6) 02/23/20 15:20 Baso % (Auto) 1.2 % (0-2) 02/23/20 15:20 Absolute Neuts (auto) 4.8 10^3/uL (1.7-8.2) 02/23/20 15:20 Absolute Lymphs (auto) 1.2 10^3/uL (0.5-4.7) 02/23/20 15:20 Absolute Monos (auto) 0.5 10^3/uL (0.1-1.4) 02/23/20 15:20 Absolute Eos (auto) 0.3 10^3/uL (0.0-0.6) 02/23/20 15:20 Absolute Basos (auto) 0.1 10^3/uL (0.0-0.2) 02/23/20 15:20 Seg Neutrophils % 70.1 % (42-78) 02/23/20 15:20 Carbonic Acid 1.40 mmol/L (1.05-1.35) H 02/26/20 06:19 HCO3/H2CO3 Ratio 20:1 02/26/20 06:19 ABG pH 7.40 (7.35-7.45) 02/26/20 06:19 ABG pCO2 46.5 mmHg (35-45) H 02/26/20 06:19 ABG pO2 70.2 mmHg (80-100) L 02/26/20 06:19 ABG HCO3 28.0 mmol/L (20-24) H 02/26/20 06:19 ABG Total CO2 29.4 mmol/L (21-25) H 02/26/20 06:19 ABG O2 Saturation 94.0 % (94-98) 02/26/20 06:19 ABG Base Excess 2.4 mmol/L 02/26/20 06:19 FiO2 3L 02/26/20 06:19 Sodium 138.8 mmol/L (137-145) 02/23/20 15:20 Potassium 4.2 mmol/L (3.6-5.0) 02/23/20 15:20 Chloride 104 mmol/L (98-107) 02/23/20 15:20 Carbon Dioxide 27 mmol/L (22-30) 02/23/20 15:20 Anion Gap 8 (5-19) 02/23/20 15:20 BUN 17 mg/dL (7-20) 02/23/20 15:20 Creatinine 0.58 mg/dL (0.52-1.25) 02/23/20 15:20 Est GFR ( Amer) > 60 (>60) 02/23/20 15:20 Est GFR (MDRD) Non-Af > 60 (>60) 02/23/20 15:20 Glucose 126 mg/dL (75-110) H 02/23/20 15:20 POC Glucose 223 mg/dL (70-110) H 02/26/20 11:56 Hemoglobin A1c % 5.8 % (4.7-6.0) 02/23/20 15:20 Calcium 9.3 mg/dL (8.4-10.2) 02/23/20 15:20 Total Bilirubin 0.9 mg/dL (0.2-1.3) 02/23/20 15:20 Direct Bilirubin 0.3 mg/dL (0.0-0.4) 02/23/20 15:20 Neonat Total Bilirubin 0.7 mg/dL (0.1-1.1) 02/23/20 15:20 Neonat Direct Bilirubin 0.0 mg/dL (0.0-0.3) 02/23/20 15:20 Neonat Indirect Bili 0.7 mg/dL (0.0-1.1) 02/23/20 15:20 AST 26 U/L (14-36) 02/23/20 15:20 ALT 12 U/L (<35) 02/23/20 15:20 Alkaline Phosphatase 88 U/L (38-126) 02/23/20 15:20 Creatine Kinase 60 U/L (30-135) 02/23/20 15:20 CK-MB (CK-2) 0.66 ng/mL (<4.55) 02/23/20 15:20 Troponin I < 0.012 ng/mL 02/23/20 15:20 NT-Pro-B Natriuret Pep 2300 pg/mL (<125) H 02/23/20 15:20 Total Protein 7.7 g/dL (6.3-8.2) 02/23/20 15:20 Albumin 3.7 g/dL (3.5-5.0) 02/23/20 15:20 TSH 4.20 uIU/mL (0.47-4.68) 02/23/20 15:20 Urine Color YELLOW 02/23/20 20:10 Urine Appearance SLIGHTLY-CLOUDY 02/23/20 20:10 Urine pH 6.0 (5.0-9.0) 02/23/20 20:10 Ur Specific [place] 1.006 02/23/20 20:10 Urine Protein NEGATIVE mg/dL (NEGATIVE) 02/23/20 20:10 Urine Glucose (UA) NEGATIVE mg/dL (NEGATIVE) 02/23/20 20:10 Urine Ketones NEGATIVE mg/dL (NEGATIVE) 02/23/20 20:10 Urine Blood SMALL (NEGATIVE) H 02/23/20 20:10 Urine Nitrite NEGATIVE (NEGATIVE) 02/23/20 20:10 Urine Bilirubin NEGATIVE (NEGATIVE) 02/23/20 20:10 Urine Urobilinogen NEGATIVE mg/dL (<2.0) 02/23/20 20:10 Ur Leukocyte Esterase LARGE (NEGATIVE) H 02/23/20 20:10 Urine WBC (Auto) 41 /HPF 02/23/20 20:10 Urine RBC (Auto) 5 /HPF 02/23/20 20:10 Urine Bacteria (Auto) 1+ /HPF 02/23/20 20:10 Squamous Epi Cells Auto 1 /HPF 02/23/20 20:10 Urine Mucus (Auto) RARE /LPF 02/23/20 20:10 Urine Ascorbic Acid NEGATIVE (NEGATIVE) 02/23/20 20:10 02/23/20 15:20 CK-MB (CK-2) 0.66 Troponin I < 0.012 NT-Pro-B Natriuret Pep 2300 H Impressions: Chest X-Ray 02/23/20 14:22 IMPRESSION: Cardiomegaly with pulmonary vascular congestion. Cannot exclude mild pulmonary edema. Stroke Is this a Stroke Patient?: No Acute Heart Failure - Is this a Heart Failure Patient?: No
== END 2020-02-26 13:00 | disposition home health service (06) | DRG 291 ==
LOC: ER 14:18 → EH 18:47 → 4S 20:45 → OBSVTOIN 02-24 14:27
PROVIDERS: ADMIT Internal Medicine; ATTEND Internal Medicine
PROC: 5A09457 Assistance with Respiratory Ventilation, 24-96 Consecutive Hours, Continuous Positive Airway Pressure (ICD-10-PCS; principal; 2020-02-23)
DX: I11.0 Hypertensive heart disease with heart failure (principal); J96.01 Acute respiratory failure with hypoxia; J96.02 Acute respiratory failure with hypercapnia; Z68.44 Body mass index [BMI] 60.0-69.9, adult; N39.0 Urinary tract infection, site not specified; J44.1 Chronic obstructive pulmonary disease with (acute) exacerbation; I50.23 Acute on chronic systolic (congestive) heart failure; G47.33 Obstructive sleep apnea (adult) (pediatric); E66.01 Morbid (severe) obesity due to excess calories; E78.5 Hyperlipidemia, unspecified; I87.2 Venous insufficiency (chronic) (peripheral); I25.10 Atherosclerotic heart disease of native coronary artery without angina pectoris; B96.1 Klebsiella pneumoniae [K. pneumoniae] as the cause of diseases classified elsewhere; B96.5 Pseudomonas (aeruginosa) (mallei) (pseudomallei) as the cause of diseases classified elsewhere; B96.20 Unspecified Escherichia coli [E. coli] as the cause of diseases classified elsewhere; Z79.899 Other long term (current) drug therapy; Z79.82 Long term (current) use of aspirin; Z79.84 Long term (current) use of oral hypoglycemic drugs; Z99.81 Dependence on supplemental oxygen
CPT/HCPCS: 36415; 36600; 71045; 80053; 81001; 82550; 82553; 82803; 82962; 83036; 83880; 84443; 84484; 85025; 87086; 87088; 87186; 93005; 93010; 94640; 94660; 96374; 99285; G0378; J0360; J1650; J1815; J1940; J2405; J2920; J3490

== ENCOUNTER 2020-08-03 10:22 | Emergency (ER) | payer MEDICARE, MEDICAID ==
[2020-08-03 11:38] LABS: ABSOLUTE EOSINOPHILS # (AUTO) 0.3 10^3/uL (0.0-0.6); ABSOLUTE LYMPHOCYTES (AUTO) 1.4 10^3/uL (0.5-4.7); ABSOLUTE MONOCYTES (AUTO) 0.4 10^3/uL (0.1-1.4); ABSOLUTE NEUT (AUTO) 6.9 10^3/uL (1.7-8.2); BASOPHILS % (AUTO) 0.5 % (0-2); EOSINOPHILS % (AUTO) 3.3 % (0-6); HEMATOCRIT 38.3 % (36.0-47.0); HEMOGLOBIN 12.6 g/dL (12.0-15.5); LYMPHOCYTES % (AUTO) 15.5 % (13-45); MEAN CORPUSCULAR HGB CONC 32.8 g/dL (32.0-36.0); MEAN CORPUSCULAR VOLUME 89 fl (80-97); MONOCYTES % (AUTO) 4.7 % (3-13); PLATELET COUNT 183 10^3/uL (150-450); RED BLOOD COUNT 4.32 10^6/uL (3.72-5.28); RED CELL DISTRIBUTION WIDTH 14.7 % (11.5-14.0); TOTAL CELLS COUNTED % (AUTO) 100 %; WHITE BLOOD COUNT 9.1 10^3/uL (4.0-10.5)
[2020-08-03 11:41] LABS: INTERNATIONAL RATION (INR) 1.07; PROTHROMBIN TIME 14.1 SEC (11.4-15.4)
[2020-08-03 11:51] LABS: ALBUMIN 3.2 g/dL (3.5-5.0); ALKALINE PHOSPHATASE 78 U/L (38-126); ANION GAP 5 (5-19); ASPARTATE AMINO TRANSFERASE 21 U/L (14-36); BILIRUBIN,DIRECT 0.2 mg/dL (0.0-0.4); BILIRUBIN,TOTAL 0.5 mg/dL (0.2-1.3); BLOOD UREA NITROGEN 12 mg/dL (7-20); CALCIUM 9.3 mg/dL (8.4-10.2); CARBON DIOXIDE 31 mmol/L (22-30); CHLORIDE 105 mmol/L (98-107); GLUCOSE 102 mg/dL (75-110); POTASSIUM 4.2 mmol/L (3.6-5.0)
--- NOTE | 2020-08-03 12:16 | RADIOLOGY REPORT (SQ) ---
EXAM DESCRIPTION: FOOT RIGHT COMPLETE IMAGES COMPLETED DATE/TIME: 08/03/2020 11:50 am REASON FOR STUDY: pain COMPARISON: None. NUMBER OF VIEWS: Three views. TECHNIQUE: AP, lateral and oblique radiographic images acquired of the right foot. LIMITATIONS: None. FINDINGS: MINERALIZATION: Normal. BONES: No acute fracture or dislocation. JOINTS: The normal tarsometatarsal alignment is preserved. There are dorsal midfoot osteophytes, ost eoarthrosis of the 1st MTP joint, and enthesophytes at the calcaneal insertions of the plantar fascia and Achilles tendon. SOFT TISSUES: No soft tissue swelling or radiopaque foreign body. OTHER: No other findings. IMPRESSION: No acute osseous abnormality of the right foot. TECHNICAL DOCUMENTATION: JOB ID: [id number] 2010 80/[employer]- All Rights Reserved Reading location - IP/workstation name: [email or web address]
--- NOTE | 2020-08-03 14:03 | ER Document Report ---
ED General - General Chief Complaint: Skin Sore(s) Stated Complaint: OPEN SORE RIGHT FOOT Time Seen by Provider: 08/03/20 10:33 Primary Care Provider: ANGE BERGER DO [Primary Care Provider] - Follow up as needed Mode of Arrival: Medic Information source: Patient TRAVEL OUTSIDE OF THE [place] IN LAST 30 DAYS: No - HPI Notes: Patient brought in by ambulance secondary to a bleeding right foot wound. Patient states that when she woke up from sleep she noticed that the foot was bleeding. She denies any known trauma to the area. States she is diabetic and gets some chronic wounds on the right foot. No fevers. She has not been lightheaded or dizzy. She denies being on any type of blood thinner. She denies any significant pain at this time. Nothing made the symptoms better or worse. They were constant but have now stopped. - Related Data Allergies/Adverse Reactions: No Known Allergies Allergy (Verified 08/03/20 10:35) Past Medical History - General Information source: Patient - Social History Smoking Status: Never Smoker Chew tobacco use (# tins/day): No Frequency of alcohol use: None Drug Abuse: None Family History: None - Past Medical History Cardiac Medical History: Reports: Hx Hypertension Endocrine Medical History: Reports: Hx Diabetes Mellitus Type 2 Psychiatric Medical History: Reports: Hx Depression Review of Systems - Review of Systems Constitutional: denies: Chills, Fever Cardiovascular: denies: Chest pain, Palpitations Respiratory: denies: Cough, Short of breath -: Yes All other systems reviewed and negative Physical Exam - Vital signs Vitals: Pulse Resp BP Pulse Ox 64 18 155/75 H 91 L 08/03/20 10:32 08/03/20 10:32 08/03/20 10:32 08/03/20 10:32 Interpretation: Normal - General General appearance: Appears well, Alert - HEENT Head: Normocephalic, Atraumatic Eyes: Normal Pupils: PERRL - Respiratory Respiratory status: No respiratory distress Chest status: Nontender Breath sounds: Normal Chest palpation: Normal - Cardiovascular Rhythm: Regular Heart sounds: Normal auscultation Murmur: No - Abdominal Inspection: Normal Distension: No distension Bowel sounds: Normal Tenderness: Nontender Organomegaly: No organomegaly - Back Back: Normal, Nontender - Extremities General upper extremity: Normal inspection, Nontender, Normal color, Normal ROM, Normal temperature General lower extremity: Nontender, Normal ROM, Normal temperature, Normal weight bearing, Other - Right foot has a couple of excoriations into the dermis 1 of which appears to been the site of bleeding. All bleeding has now stopped. Patient also has an ulceration to the base of the right great toe. Nothing appears acutely infected.. No: Avinash's sign - Neurological Neuro grossly intact: Yes Cognition: Normal Orientation: AAOx4 Erik Coma Scale Eye Opening: Spontaneous [place] Coma Scale Verbal: Oriented Erik Coma Scale Motor: Obeys Commands [place] Coma Scale Total: 15 Speech: Normal Motor strength normal: LUE, RUE, LLE, RLE Sensory: Normal - Psychological Associated symptoms: Normal affect, Normal mood - Skin Skin Temperature: Warm Skin Moisture: Dry Skin Color: Erythema Course - Re-evaluation Re-evalutation: 08/03/20 14:00 Patient presented with a bleeding right foot wound. Bleeding stopped upon arrival to ED. Wound was dressed and has had no further bleeding. X-rays show no evidence of significant abnormality. Laboratories are unremarkable. I have called wound center and they will call the patient tomorrow and arrange for her to be seen in follow-up. - Vital Signs Vital signs: Temp Pulse Resp BP Pulse Ox 98.2 F 64 18 155/75 H 91 L 08/03/20 10:36 08/03/20 10:32 08/03/20 10:32 08/03/20 10:32 08/03/20 10:32 - Laboratory Results Result Diagrams: 08/03/20 10:58 08/03/20 10:58 Laboratory Results Interpreted: 08/03/20 08/03/20 10:58 10:58 RDW 14.7 H Carbon Dioxide 31 H Albumin 3.2 L Critical Laboratory Results Reviewed: No Critical Results - Radiology Results Critical Radiology Results Reviewed: No Critical Results Discharge - Discharge Clinical Impression: Bleeding from wound Condition: Stable Disposition: HOME, SELF-CARE Instructions: Foot or Leg Ulcer ([facility]) Additional Instructions: Wound care clinic will call you tomorrow to arrange follow-up Referrals: ANGE BERGER I, DO [Primary Care Provider] - Follow up as needed Wound Care [Provider Group] - Follow up tomorrow
[2020-08-03 16:16] VITALS: BP 158/90
== END 2020-08-03 16:18 | disposition home or self-care (01) ==
LOC: ER 10:22
DX: L98.9 Disorder of the skin and subcutaneous tissue, unspecified (principal); I10 Essential (primary) hypertension; E11.9 Type 2 diabetes mellitus without complications
CPT/HCPCS: 36415; 80053; 85025; 85610; 99284

== ENCOUNTER → 2020-08-23 | Outpatient (CLI) | payer MEDICARE, MEDICAID ==
[2020-08-23 09:55] LABS: ABSOLUTE BASOPHILS # (AUTO) 0.1 10^3/uL (0.0-0.2); ABSOLUTE EOSINOPHILS # (AUTO) 0.3 10^3/uL (0.0-0.6); ABSOLUTE LYMPHOCYTES (AUTO) 1.7 10^3/uL (0.5-4.7); ABSOLUTE MONOCYTES (AUTO) 0.5 10^3/uL (0.1-1.4); ABSOLUTE NEUT (AUTO) 6.2 10^3/uL (1.7-8.2); BASOPHILS % (AUTO) 0.9 % (0-2); EOSINOPHILS % (AUTO) 3.4 % (0-6); HEMATOCRIT 40.3 % (36.0-47.0); HEMOGLOBIN 13.2 g/dL (12.0-15.5); LYMPHOCYTES % (AUTO) 19.1 % (13-45); MEAN CORPUSCULAR HEMOGLOBIN 29.1 pg (27.0-33.4); MEAN CORPUSCULAR HGB CONC 32.8 g/dL (32.0-36.0); MEAN CORPUSCULAR VOLUME 89 fl (80-97); MONOCYTES % (AUTO) 5.4 % (3-13); PLATELET COUNT 192 10^3/uL (150-450); RED BLOOD COUNT 4.54 10^6/uL (3.72-5.28); RED CELL DISTRIBUTION WIDTH 14.8 % (11.5-14.0); SEGMENTED NEUTROPHILS % (AUTO) 71.2 % (42-78); TOTAL CELLS COUNTED % (AUTO) 100 %; WHITE BLOOD COUNT 8.7 10^3/uL (4.0-10.5)
[2020-08-23 10:20] LABS: ALBUMIN 3.6 g/dL (3.5-5.0); ALKALINE PHOSPHATASE 81 U/L (38-126); ANION GAP 6 (5-19); ASPARTATE AMINO TRANSFERASE 23 U/L (14-36); BILIRUBIN,DIRECT 0.2 mg/dL (0.0-0.4); BILIRUBIN,TOTAL 0.6 mg/dL (0.2-1.3); BLOOD UREA NITROGEN 10 mg/dL (7-20); C-REACTIVE PROTEIN 8.3 mg/L (<10.0); CALCIUM 8.9 mg/dL (8.4-10.2); CARBON DIOXIDE 28 mmol/L (22-30); CHLORIDE 107 mmol/L (98-107); GLUCOSE 73 mg/dL (75-110); POTASSIUM 4.4 mmol/L (3.6-5.0); TOTAL PROTEIN 7.5 g/dL (6.3-8.2)
[2020-08-23 10:32] LABS: ERYTHROCYTE SEDIMENTATION RATE 34 mm/hr (0-30)
--- NOTE | 2020-08-23 14:44 | RADIOLOGY REPORT (SQ) ---
EXAM DESCRIPTION: ARTERIAL LOWER EXTREM BILAT; PHYSIO ARTERIAL LTD IMAGES COMPLETED DATE/TIME: 08/23/2020 1:38 pm REASON FOR STUDY: CHRONIC ULCER L97.312 NON-PRS CHRONIC ULCER OF RIGHT ANKLE W FAT LAYER EXP E11.62 1 TYPE 2 DIABETES MELLITUS WITH FOOT ULCER COMPARISON: None. TECHNIQUE: Dynamic and static sexton scale and color images acquired of the lower extremity arteries. Additional selected spectral images recorded. ABIs recorded. LIMITATIONS: None. FINDINGS: RIGHT LEG: ABIS: Normal, over 1.0. INFLOW ARTERIES: Normal, no obstruction evident. FEMORAL ARTERIES:Triphasic waveforms. Normal, no velocity elevation to suggest focal stenosis. Normal color Doppler evaluation. No aneurysm. POPLITEAL ARTERY:Triphasic waveforms. Normal, no velocity elevation to suggest focal stenosis. Normal color Doppler evaluation. No aneurysm. PATENT TIBIOPERONEAL TRUNK AND 3 VESSEL RUNOFF: Yes, normal vessels. TBI: Not performed. OTHER: No other significant finding. LEFT LEG: ABIS: Normal, over 1.0. INFLOW ARTERIES: Normal, no obstruction evident. FEMORAL ARTERIES:Triphasic waveforms. Normal, no velocity elevation to suggest focal stenosis. Normal color Doppler evaluation. No aneurysm. POPLITEAL ARTERY:Triphasic waveforms. Normal, no velocity elevation to suggest focal stenosis. Normal color Doppler evaluation. No aneurysm. PATENT TIBIOPERONEAL TRUNK AND 3 VESSEL RUNOFF: Yes, normal vessels. TBI: Not performed. OTHER: No other significant finding. IMPRESSION: NORMAL BILATERAL LOWER EXTREMITY ARTERIAL DOPPLER WITH ABIs. COMMENT: [facility] NORMAL: Greater than 1.0 MINIMAL DISEASE: 0.9 to 1.0 CLAUDICATION: 0.5 to 0.9 SEVERE ARTERIAL DISEASE: Less than 0.5 [facility] NORMAL: Greater than 1.0 (1.2 If Heavy Calcifications) NORMAL TO MILD ISCHEMIA: 0.8 to 1.0 MODERATE ISCHEMIA: 0.4 to 0.8 SEVERE ISCHEMIA: Less than 0.4 TECHNICAL DOCUMENTATION: JOB ID: [id number] [employer]- All Rights Reserved Reading location - IP/workstation name: [email or web address]
--- NOTE | 2020-08-23 14:44 | RADIOLOGY REPORT (SQ) ---
EXAM DESCRIPTION: ARTERIAL LOWER EXTREM BILAT; PHYSIO ARTERIAL LTD IMAGES COMPLETED DATE/TIME: 08/23/2020 1:38 pm REASON FOR STUDY: CHRONIC ULCER L97.312 NON-PRS CHRONIC ULCER OF RIGHT ANKLE W FAT LAYER EXP E11.62 1 TYPE 2 DIABETES MELLITUS WITH FOOT ULCER COMPARISON: None. TECHNIQUE: Dynamic and static sexton scale and color images acquired of the lower extremity arteries. Additional selected spectral images recorded. ABIs recorded. LIMITATIONS: None. FINDINGS: RIGHT LEG: ABIS: Normal, over 1.0. INFLOW ARTERIES: Normal, no obstruction evident. FEMORAL ARTERIES:Triphasic waveforms. Normal, no velocity elevation to suggest focal stenosis. Normal color Doppler evaluation. No aneurysm. POPLITEAL ARTERY:Triphasic waveforms. Normal, no velocity elevation to suggest focal stenosis. Normal color Doppler evaluation. No aneurysm. PATENT TIBIOPERONEAL TRUNK AND 3 VESSEL RUNOFF: Yes, normal vessels. TBI: Not performed. OTHER: No other significant finding. LEFT LEG: ABIS: Normal, over 1.0. INFLOW ARTERIES: Normal, no obstruction evident. FEMORAL ARTERIES:Triphasic waveforms. Normal, no velocity elevation to suggest focal stenosis. Normal color Doppler evaluation. No aneurysm. POPLITEAL ARTERY:Triphasic waveforms. Normal, no velocity elevation to suggest focal stenosis. Normal color Doppler evaluation. No aneurysm. PATENT TIBIOPERONEAL TRUNK AND 3 VESSEL RUNOFF: Yes, normal vessels. TBI: Not performed. OTHER: No other significant finding. IMPRESSION: NORMAL BILATERAL LOWER EXTREMITY ARTERIAL DOPPLER WITH ABIs. COMMENT: [facility] NORMAL: Greater than 1.0 MINIMAL DISEASE: 0.9 to 1.0 CLAUDICATION: 0.5 to 0.9 SEVERE ARTERIAL DISEASE: Less than 0.5 [facility] NORMAL: Greater than 1.0 (1.2 If Heavy Calcifications) NORMAL TO MILD ISCHEMIA: 0.8 to 1.0 MODERATE ISCHEMIA: 0.4 to 0.8 SEVERE ISCHEMIA: Less than 0.4 TECHNICAL DOCUMENTATION: JOB ID: [id number] [email or web address]- All Rights Reserved Reading location - IP/workstation name: [email or web address]
== END ==
LOC: SP 09:23
PROVIDERS: ATTEND Nurse Practitioner Family
DX: E11.621 Type 2 diabetes mellitus with foot ulcer (principal); L97.312 Non-pressure chronic ulcer of right ankle with fat layer exposed
CPT/HCPCS: 36415; 80053; 83036; 85025; 85652; 86140; 93922; 93925